=== PATIENT | male | born 1980 | race Caucasian/White ===

== ENCOUNTER 2024-10-30 14:44 | Emergency (ER) | payer OTHER, SELFPAY ==
[2024-10-30 14:53] VITALS: BP 143/86
[2024-10-30 15:15] LABS: % Basophils 0.3 % (0-2); % Eosinophils 0.9 % (0-6); % Immature Granulocytes 0.1 % (0-0.5); % Lymphocytes 39.5 % (20.5-51.1); % Monocytes 7.7 % (1.7-9.3); % Neutrophils 51.5 % (42.2-75.2); Absolute Eosinophils 0.1 10^3/uL (0-0.7); Absolute Lymphocytes 2.7 10^3/uL (1.2-3.4); Absolute Monocytes 0.5 10^3/uL (0.1-0.6); Absolute Neutrophils 3.6 10^3/uL (1.4-6.5); Hematocrit 37.8 % (39.0-52.0); Hemoglobin 13.8 g/dL (13.0-18.0); Mean Corp Hgb Conc. 36.5 g/dL (33.0-37.0); Mean Corpuscular Hgb 31.4 pg (27.0-31.0); Mean Corpuscular Volume 85.9 fL (80.0-94.0); Mean Platelet Volume 11.2 fL (7.4-10.4); Nucleated Red Blood Cells % 0 % (-); Platelet Count 168 10^3/uL (130-400); Red Cell Dist. Width 12.1 % (11.5-14.5); White Blood Cell Count 6.9 10^3/uL (4.8-10.8)
[2024-10-30 15:33] LABS: ALT (SGPT) 36 U/L (0-50); AST (SGOT) 35 U/L (17-59); Albumin 4.4 g/dl (3.5-5.0); Alkaline Phosphatase 35 U/L (38-126); Blood Urea Nitrogen 19 mg/dl (9-20); Calcium 9.4 mg/dl (8.4-10.2); Carbon Dioxide 29 mmol/L (22-30); Chloride 102 mmol/L (98-107); Glucose 104 mg/dl (70-99); Potassium 4.1 mmol/L (3.5-5.1); Sodium 140 mmol/L (135-145); Total Bilirubin 1.4 mg/dl (0.2-1.3); Total Protein 7.1 g/dl (6.3-8.2); eGFR > 60.00
[2024-10-30 15:40] LABS: Troponin I < 0.012 ng/ml
[2024-10-30 16:19] VITALS: BP 128/76
[2024-10-30 16:34] VITALS: BMI 27.2
[2024-10-30 17:00] VITALS: BP 125/95
--- NOTE | 2024-10-30 17:13 | ED.GENMED ---
History of Present Illness
<Adelina Chan, TELECOMMUNICATIONS SPECIALIST - Last Filed: 10/31/24 16:07>
General
Chief Complaint: Cardiac Symptoms
Source: patient
Exam Limitations: none
Time Seen by Provider: 10/30/24 17:07
Nursing documentation reviewed up to this point in time: agreed with
History of Present Illness
History of Present Illness:
43-year-old male with no past medical history presents for 'gurgling, bubbling' sound left lung past week off and on. Denies CP, SOB.
Healthy, works out moderately, nothing different, eats healthy, is a health and surgery teacher.
He does take 'Zytol' for seasonal allergies.
Past History
<Adelina Chan, TELECOMMUNICATIONS SPECIALIST - Last Filed: 10/31/24 16:07>
Past History
ED Past Medical History: None
ED Past Surgical History: None
Social History
Tobacco: Non-smoker
Alcohol: None
Personal:
Living: with family
Employment: Employed
Family History
Family History: Cancer (Mom age 72) and Other (Father alive at 82, 'circulation problems')
Review of Systems
<Adelina Chan, TELECOMMUNICATIONS SPECIALIST - Last Filed: 10/31/24 16:07>
Review of Systems
Allergies reviewed?: Yes
All Other Systems: ROS reviewed and negative except as documented in HPI and ROS
Constitutional: Denies fever or fatigue
EENT: Denies sore throat or runny nose
Respiratory: Reports other ('Grumbling, bubbling' in left lung intermittently for past week); Denies cough or trouble breathing
Cardiac: Denies chest pain or palpitations
ABD/GI: Denies abdominal pain, nausea, vomiting or diarrhea
: Denies dysuria or frequency
Musculoskeletal: Reports no symptoms
Skin: Reports no symptoms
Neurological: Reports no symptoms
Phy Exam
<Adelina Chan, TELECOMMUNICATIONS SPECIALIST - Last Filed: 10/31/24 16:07>
Physical Exam
Physical Exam:
GENERAL: No acute distress. A&Ox3.
CONSTITUTIONAL: Afebrile.
EYES: clear, conjunctivae normal
ENMT: moist mucus membranes, Pharynx nl
RESPIRATORY: Regular respirations, nonlabored, lungs with faint crackles left lung base with deep inspiration.
CARDIOVASCULAR: Regular rate and rhythm, no murmurs, no rubs.
GI: Soft, nontender, normal BS
MUSCULOSKELETAL: Moves with ease. Well perfused.
SKIN: Warm, dry, pink
PSYCH: Normal mood and affect. Well kept, interactive and appropriate
NEUROLOGIC: Awake, alert and oriented. No focal neurological deficits
Course
<Adelina Chan, TELECOMMUNICATIONS SPECIALIST - Last Filed: 10/31/24 16:07>
Orders/Labs/Results
Orders:
Orders
10/30/24 14:46
Electrocardiogram (*1) Urgent
Reason for Study: Chest Pain
EKG- Treatment ONCE
10/30/24 14:53
Cardiac Monitoring- Treatment ONCE
EKG- Treatment ONCE
IV Insert/Care/Rem.- Treatment PRN
O2 Therapy [RESP] Urgent
Titrate/Wean O2 to maintain O2 sat greater than (%): 90
Special Instructions: Maintain sats >/=90%
Pulse Ox/spot Check [RESP] Urgent
Quantity: 1
Special Instructions: ON ROOM AIR
10/30/24 15:06
Complete Blood Count/With Diff Urgent
Comprehensive Metabolic Panel Urgent
Troponin I Urgent
10/30/24 17:13
CR Chest - 2 Views Urgent
Comment:
Reason For Exam: L chest discomfort'gurgling'
Abnormal Lab Results
10/30/24
15:06
RBC 4.40 L 10^6/uL
(4.70-6.10)
Hct 37.8 L %
(39.0-52.0)
MCH 31.4 H pg
(27.0-31.0)
MPV 11.2 H fL
(7.4-10.4)
Glucose 104 H mg/dl
(70-99)
Total Bilirubin 1.4 H mg/dl
(0.2-1.3)
Alkaline Phosphatase 35 L U/L
(38-126)
10/30/24 15:06
10/30/24 15:06
Vital Signs
Initial and Last Documented VS:
Initial Vital Signs
Temp Pulse Resp BP Pulse Ox
97.7 F 68 16 143/86 99
10/30/24 14:53 10/30/24 14:53 10/30/24 14:53 10/30/24 14:53 10/30/24 14:53
Last Documented Vital Signs
Temp Pulse Resp BP Pulse Ox
97.7 F 58 21 125/95 96
10/30/24 14:53 10/30/24 18:00 10/30/24 18:00 10/30/24 17:00 10/30/24 18:26
<Hamzah Ramirez, DO - Last Filed: 10/30/24 19:08>
Orders/Labs/Results
Orders:
Orders
10/30/24 14:46
Electrocardiogram (*1) Urgent
Reason for Study: Chest Pain
EKG- Treatment ONCE
10/30/24 14:53
Cardiac Monitoring- Treatment ONCE
EKG- Treatment ONCE
IV Insert/Care/Rem.- Treatment PRN
O2 Therapy [RESP] Urgent
Titrate/Wean O2 to maintain O2 sat greater than (%): 90
Special Instructions: Maintain sats >/=90%
Pulse Ox/spot Check [RESP] Urgent
Quantity: 1
Special Instructions: ON ROOM AIR
10/30/24 15:06
Complete Blood Count/With Diff Urgent
Comprehensive Metabolic Panel Urgent
Troponin I Urgent
10/30/24 17:13
CR Chest - 2 Views Urgent
Comment:
Reason For Exam: L chest discomfort'gurgling'
Abnormal Lab Results
10/30/24
15:06
RBC 4.40 L 10^6/uL
(4.70-6.10)
Hct 37.8 L %
(39.0-52.0)
MCH 31.4 H pg
(27.0-31.0)
MPV 11.2 H fL
(7.4-10.4)
Glucose 104 H mg/dl
(70-99)
Total Bilirubin 1.4 H mg/dl
(0.2-1.3)
Alkaline Phosphatase 35 L U/L
(38-126)
10/30/24 15:06
10/30/24 15:06
Vital Signs
Initial and Last Documented VS:
Initial Vital Signs
Temp Pulse Resp BP Pulse Ox
97.7 F 68 16 143/86 99
10/30/24 14:53 10/30/24 14:53 10/30/24 14:53 10/30/24 14:53 10/30/24 14:53
Last Documented Vital Signs
Temp Pulse Resp BP Pulse Ox
97.7 F 58 21 125/95 96
10/30/24 14:53 10/30/24 18:00 10/30/24 18:00 10/30/24 17:00 10/30/24 18:26
<Adelina Chan TELECOMMUNICATIONS SPECIALIST - Last Filed: 10/31/24 16:07>
MDM/Problems Addressed
Differential Diagnosis Includes:
seasonal allergies, mucus plug, pleural effusion, GERD
MDM/Problems Addressed:
43-year-old male with no past medical history presents for 'gurgling, bubbling' sound left lung past week off and on. Denies CP, SOB.
Healthy, works out moderately, nothing different, eats healthy, is a health and surgery teacher.
He does take 'Zytol' for seasonal allergies.
5:15 PM:
CBC normal
CMP normal
Troponin normal
EKG NSR
7:00 p.m.
CXR: NAD
Lungs CTA now
Case discussed with Dr. Ramirez who examined pt and agrees w discharge
<Adelina Chan TELECOMMUNICATIONS SPECIALIST - Last Filed: 10/31/24 16:07>
*EKG
EKG Intrepretation Date: 10/30/24
Interpretation: normal
Heart Rate: 67
Rate: normal
Rhythm: sinus
[place]: normal axis
Interval: normal interval
QRS Pattern: normal QRS
Ischemia: no ischemia
*Critical Care Note
Total Time (30-74mins, 75-104mins- exclusive of procedures): Not Applicable
ED Attending Note
<Adelina Chan TELECOMMUNICATIONS SPECIALIST - Last Filed: 10/31/24 16:07>
-
Portions of this chart may have been created with voice recognition software.� Occasional wrong word or��sound alike� substitutions may have occurred due to the inherent limitations of voice recognition software.
<Hamzah Ramirez, DO - Last Filed: 10/30/24 19:08>
ED Attending Note
Patient seen and examined by attending physician: Yes
I performed the substantive portion of visit, reviewed & personally made and approve the management plan that is documented in note by myself or SIXTO.: Yes
ED Attending Note:
I have seen and evaluated the patient with a [id number] encounter. I have spoken to the advance practicer provider and involved in the medical history, the physical exam, medical decision making.
Evaluation and management service: agree unless noted differently below.
Results interpretation: agree unless noted differently below.
Focused HPI: 43-year-old male presenting with 1 week of intermittent left sided rib discomfort. Patient started get worried because symptoms were persistent. He was intermittently noting a gurgling in the left side of his chest.
Physical exam: Sitting in bed comfortably. Heart regular in rhythm. Lungs clear.
Medical Decision Making: Chest x-ray clear. No wheezing noted. Troponin negative. EKG nonischemic. Doubt ACS given duration of symptoms with normal troponin. Doubt bronchitis given no wheezing. Doubt pneumonia given normal chest x-ray.
Patient feels reassured and feels comfortable going home
Discharge Plan
Departure
Patient Disposition: Home (Routine Discharge)
Date of Disposition: 10/30/24
Time of Disposition: 19:05
Patient with high blood pressure during this ER visit?: No
Condition: Good
Discharge Problem:
Chest discomfort
Referrals:
NONE,* [Family Provider] -
Activity Restrictions/Additional Instructions:
Please return for any worsening symptoms.
You may return at any time if you have further concerns.
Please follow up with your doctor at the first available appointment, preferably this week.
Thank you for choosing [facility].
Interventions
Interventions:
*Risk Screen - Suicide Last Done: 10/30/24 14:53
*General Assessment Last Done: 10/30/24 14:53
*Neglect/Abuse Screening Last Done: 10/30/24 14:53
*ED- Fall Risk Assessment Last Done: 10/30/24 14:53
*Nursing Disposition Last Done: 10/30/24 19:22
ED- Pulmonary Assessment Last Done: 10/30/24 18:26
ED- Cardiac Assessment Last Done: 10/30/24 18:26
Discharge Date and Time
Discharge Date/Time: 10/30/24 19:22
Print Language: PERSIAN
== END 2024-10-30 19:22 | disposition home or self-care (01) ==
LOC: EMR 14:44
PROVIDERS: EMERGENCY PHYSICIAN Student in an Organized Health Care Education/Training Program
DX: R07.89 Other chest pain (principal)
CPT/HCPCS: 99285; 71046; 80053; 84484; 85025; 93005